=== PATIENT | female | born 1995 | race Caucasian/White ===

== ENCOUNTER 2017-12-17 17:53 | Outpatient (CLI) | payer SELFPAY ==
[2017-12-17 18:26] VITALS: BP 116/68; PULSE 99; RESP 18; TEMP 37.1; O2SAT 98
--- NOTE | 2017-12-17 18:30 | US_ITS ---
US OB biophysical profile: Indication: ITS.REASON: VAGINAL BLEEDING ORDERING PHYSICIAN: Terra Street MD PATIENT AGE: 22 years FINDINGS: There are no previous exams available for comparison. There is a single live fetus present which is in cephalic presentation. heart and body motion noted. The BPD is 6.78 cm correlating to gestational age of 27 weeks and 3 days. Estimated due date by ultrasound is 03/11/2018. This study does not suffice for an anatomy exam. The placenta is fundal and anterior. No previa or abruption. There is average amount of amniotic fluid with an DU of 19 cm. Heart rate is 1 56 bpm. Amniotic fluid index: 19 cm Qualitative AFV: 2 breathing movements: 2 Gross body movements: 2 Tone: 2 Biophysical profile score: 8/8 The cervix appears closed and measures 3 cm. Doppler evaluation of the umbilical artery shows an SD ratio of 2.8 with a resistive index of 0.64. IMPRESSION: Live IUP at 28 weeks cephalic presentation. No previa or fraction. Biophysical profile 8 of 8 with average amniotic fluid volume. Normal Doppler evaluation of the umbilical artery
[2017-12-17 19:08] LABS: Basophils % 0.1 % (0.1-2.0); Eosinophils # 0.1 K/mm3 (0.0-0.4); Hemoglobin 9.5 g/dL (12.2-16.2); Lymphocytes # 1.6 K/mm3 (0.7-4.5); Lymphocytes % 15.6 K/mm3 (10-50); Mean Corpuscular HGB Conc 34.9 g/dL (31.8-35.4); Mean Corpuscular Hemoglobin 29.5 pg (27.0-31.2); Mean Corpuscular Volume 84.4 fl (81-99); Mean Platelet Volume 8.2 fl (7.4-10.4); Monocytes # 0.4 K/mm3 (0.1-1.0); Monocytes % 3.7 % (1.7-9.3); Neutrophils # 8.2 K/mm3 (1.8-7.8); Neutrophils % 79.6 % (37.0-80.0); Platelet Count 303 K/mm3 (142-424); Red Blood Count 3.23 M/mm3 (4.20-5.40); Red Cell Distribution Width 13.6 % (11.5-17.5); White Blood Count 10.3 K/mm3 (4.8-10.8)
[2017-12-17 19:13] LABS: Hematocrit 27.3 % (37.0-47.0)
== END 2017-12-17 21:05 | disposition home or self-care (01) ==
LOC: OBOUT 18:00 → OB 18:01
PROVIDERS: Visit Provider Obstetrics & Gynecology
DX: O46.93 Antepartum hemorrhage, unspecified, third trimester (principal); Z3A.28 28 weeks gestation of pregnancy
CPT/HCPCS: 36415; 59025; 76819; 85025